=== PATIENT | male | born 1960 ===

== ENCOUNTER 2020-02-03 22:15 | Inpatient (IN) | payer OTHER ==
[~2020-02-03] VITALS: Ht 180.3 cm; Wt 86.2 kg
[2020-02-03] MEDS ORDERED: PROTONIX40 MG (22:42)
[2020-02-03] MEDS ORDERED: MELATONIN5 M4 (22:42)
[2020-02-03] MEDS ORDERED: ZESTRIL5 MG (22:43)
[2020-02-03] MEDS ORDERED: METFORMIN HCL500 M3 (22:43)
[2020-02-03] MEDS ORDERED: PEPCID AC20 MG (22:43)
[2020-02-09] MEDS ORDERED: NORVASC5 MG PO (09:33)
== END 2020-02-09 20:10 | disposition home or self-care (01) | DRG 684 ==
LOC: ER 22:15 → ICU 02-04 09:09 → EDBD 02-04 09:09 → ICU-2 02-04 09:09 → ICU 02-05 22:27 → MEDJ 02-08 08:03
PROVIDERS: ADMIT Internal Medicine; ATTEND Internal Medicine
PROC: 06HM33Z Insertion of Infusion Device into Right Femoral Vein, Percutaneous Approach (ICD-10-PCS; principal; 2020-02-04)
PROC: 02HV33Z Insertion of Infusion Device into Superior Vena Cava, Percutaneous Approach (ICD-10-PCS; 2020-02-04)
PROC: BW40ZZZ Ultrasonography of Abdomen (ICD-10-PCS; 2020-02-04)
PROC: BF37ZZZ Magnetic Resonance Imaging (MRI) of Pancreas (ICD-10-PCS; 2020-02-05)
PROC: 30233N1 Transfusion of Nonautologous Red Blood Cells into Peripheral Vein, Percutaneous Approach (ICD-10-PCS; 2020-02-06)
DX: N17.8 Other acute kidney failure (principal); D64.89 Other specified anemias; Z20.828 Contact with and (suspected) exposure to other viral communicable diseases; E78.49 Other hyperlipidemia; E11.9 Type 2 diabetes mellitus without complications